=== PATIENT | male | born 1975 | race Caucasian/White ===

== ENCOUNTER 2021-02-09 19:02 | Emergency (ER) | payer MEDICARE, MEDICAID ==
[~2021-02-09] VITALS: Ht 177.8 cm; Wt 104.0 kg
[2021-02-09] MEDS ORDERED: proparacaine 0.5% ophthalmic drops 15ml EACHEYE ONE (19:05)
[2021-02-09] MEDS ORDERED: fluorescein sod 1mg ophthalmic strip EACHEYE ONE (19:05)
[2021-02-09] MEDS ORDERED: ciprofloxacin 0.3% 2.5ml ophthalmic solution LEFTEYE ONE (20:25)
[2021-02-09] MEDS ORDERED: erythromycin ophthalmic ointment 1gm tube LEFTEYE ONE (20:25)
[2021-02-09] MEDS ORDERED: CIPR2.5D21 LEFTEYE (22:09)
[2021-02-09 22:25] VITALS: BP 160/120
== END 2021-02-09 22:29 | disposition home or self-care (01) ==
LOC: ER 19:02
DX: S05.02XA Injury of conjunctiva and corneal abrasion without foreign body, left eye, initial encounter (principal); H57.12 Ocular pain, left eye; H53.142 Visual discomfort, left eye; F17.200 Nicotine dependence, unspecified, uncomplicated; Z72.89 Other problems related to lifestyle; Z79.2 Long term (current) use of antibiotics; Z60.2 Problems related to living alone; X58.XXXA Exposure to other specified factors, initial encounter; Y93.89 Activity, other specified; Y92.89 Other specified places as the place of occurrence of the external cause; Y99.8 Other external cause status
CPT/HCPCS: 69209; 99284

== ENCOUNTER 2021-02-10 07:56 | Emergency (ER) | payer MEDICARE, MEDICAID ==
[~2021-02-10] VITALS: Ht 177.8 cm; Wt 104.5 kg
[~2021-02-10 07:56] MED LIST: CIPR2.5D21 LEFTEYE
[2021-02-10 08:09] VITALS: BP 145/107
[2021-02-10] MEDS ORDERED: proparacaine 0.5% ophthalmic drops 15ml LEFTEYE ONE (08:25)
== END 2021-02-10 10:03 | disposition home or self-care (01) ==
LOC: ER 07:56
DX: S05.02XD Injury of conjunctiva and corneal abrasion without foreign body, left eye, subsequent encounter (principal); H57.12 Ocular pain, left eye; Z60.2 Problems related to living alone; Z72.89 Other problems related to lifestyle; Z79.2 Long term (current) use of antibiotics; X58.XXXD Exposure to other specified factors, subsequent encounter
CPT/HCPCS: 99281

== ENCOUNTER 2023-04-20 00:16 | Inpatient (IN) | payer MEDICARE, MEDICAID ==
[~2023-04-20] VITALS: Ht 177.8 cm; Wt 86.9 kg
[~2023-04-20 00:16] MED LIST changes: +ASPI-1071 PO; -CIPR2.5D21 LEFTEYE; +LOSA-416 PO; +METO-384 PO; +NITR0.4T51 SL; +NOR5T PO; +POTA10CA85 PO
[2023-04-20] MEDS ORDERED: normal saline 1000ML IV soln IVB ONE (07:15)
[2023-04-20] MEDS ORDERED: metoclopramide 5 mg/ml inj IV ONE (07:15)
[2023-04-20] MEDS ORDERED: morphine 4 MG/ML inj SYRINge IV ONE (07:15)
[2023-04-20] MEDS ORDERED: hydrALAZINE 20mg/ml inj. IV ONE (07:20)
--- NOTE | 2023-04-20 07:36 | NUR ---
RN requested tech to do accucheck, tech got an accucheck of 111, RN notified.
[2023-04-20 08:23] LABS: BILIRUBIN,URINE NEGATIVE (Neg); CLARITY,URINE CLEAR (Clear); COLOR,URINE YELLOW (Yellow); GLUCOSE, URINE NEGATIVE (Neg); KETONES,URINE NEGATIVE (Neg); LEUKOCYTE ESTERASE ,URINE NEGATIVE (Neg); NITRITES, URINE NEGATIVE (Neg); OCCULT BLOOD,URINE NEGATIVE (Neg); PROTEIN,URINE NEGATIVE (Neg)
[2023-04-20 08:41] LABS: UA COLLECTION TYPE CLN CATCH MIDSTREAM
[2023-04-20 08:59] LABS: BASOPHILS # (AUTO) 0.1 X10'3 (0-0.2); BASOPHILS % (AUTO) 1.3 % (0-1); EOSINOPHILS # (AUTO) 0.2 X10'3 (0-0.9); EOSINOPHILS % (AUTO) 2.8 % (0-6); HEMOGLOBIN 13.8 g/dl (14.0-17.9); LYMPHOCYTES # (AUTO) 1.6 X10'3 (1.1-4.8); MEAN CORPUSCULAR HEMOGLOBIN 32.5 PG (27.0-31.0); MEAN CORPUSCULAR HGB CONC 34.4 g/dL (33.0-36.5); MEAN CORPUSCULAR VOLUME 94.7 FL (78-98); MEAN PLATELET VOLUME 10.5 FL (7.4-10.4); MONOCYTES # (AUTO) 0.8 X10'3 (0-0.9); MONOCYTES % (AUTO) 11.3 % (2-12); NEUTROPHILS # (AUTO) 4.1 X10'3 (1.8-7.7); NEUTROPHILS % (AUTO) 60.6 % (42-75); PLATELET COUNT 255 X10'3 (140-440); RED BLOOD COUNT 4.23 X10'6 (4.70-6.10); RED CELL DISTRIBUTION WIDTH 13.7 % (11.5-14.5); WHITE BLOOD COUNT 6.7 X10'3 (4.5-11.0)
[2023-04-20 09:08] LABS: APTT 26 SECONDS (22-32); PROTHROMBIN TIME 10.5 SECONDS (9.0-12.0)
[2023-04-20 09:23] LABS: ETHANOL < 10 MG/DL (<10); MAGNESIUM 1.9 MG/DL (1.5-2.4); PHOSPHORUS 4.2 MG/DL (2.3-4.5); PRO BRAIN NATRIURETIC PEPTIDE 166 PG/ML (0-125)
[2023-04-20 09:41] LABS: ALANINE AMINOTRANSFERASE 29 U/L (12-78); ALBUMIN 3.4 G/DL (3.4-5.0); ALBUMIN/GLOBULIN RATIO 1.1 (1.1-1.5); ALKALINE PHOSPHATASE 71 IU/L (46-116); ANION GAP 5 (8-16); ASPARTATE AMINO TRANSFERASE 21 U/L (10-37); BILIRUBIN,TOTAL 0.4 MG/DL (0.1-1.0); BLOOD UREA NITROGEN 9 MG/DL (7-18); BUN/CREATININE RATIO 11.4 (10.0-20.0); CALCIUM 9.2 MG/DL (8.5-10.1); CHLORIDE 101 MMOL/L (99-107); CREATININE 0.79 MG/DL (0.60-1.10); GLUCOSE 103 MG/DL (70-104); SODIUM 143 MMOL/L (135-145); TOTAL CARBON DIOXIDE 37.2 MMOL/L (24-32); TOTAL PROTEIN 6.6 G/DL (6.4-8.2); eCRCL 122 ML/MIN; eGFR > 90 ML/MIN
[2023-04-20 09:48] LABS: POTASSIUM 2.7 MMOL/L (3.5-5.1)
[2023-04-20 10:12] LABS: URINE AMPHETAMINE SCREEN NEGATIVE (Neg); URINE BARBITUATE SCREEN NEGATIVE (Neg); URINE BENZODIAZEPINES SCREEN NEGATIVE (Neg); URINE CANNABINOID SCREEN POSITIVE (Neg); URINE COCAINE SCREEN NEGATIVE (Neg); URINE OPIATE SCREEN NEGATIVE (Neg); URINE PHENCYCLIDINE SCREEN NEGATIVE (Neg)
--- NOTE | 2023-04-20 10:15 | NUR ---
SPOKE WITH MD COBIAN WHO STATED PACER PADS ARE NOT NEEDED AT THIS TIME. ORDER ENTERED IN ERROR.
[2023-04-20] MEDS ORDERED: potassium Cl 20 mEq SR tablet PO STA (10:19)
[2023-04-20] MEDS ORDERED: Potassium Cl inj 40 MEQ in normal saline 250ml IV soln 250 ML IV ONE (10:20)
[2023-04-20] MEDS ORDERED: Potassium Cl 40 MEQ in sodium chloride 0.45% 500 ML IV ONE (10:30)
[2023-04-20] MEDS ORDERED: aspirin 325mg tablet PO ONE (10:35)
--- NOTE | 2023-04-20 10:42 | NUR ---
DR COBIAN ACTIVATED STROKE CALL @ 1712
[2023-04-20] MEDS ORDERED: iohexol 350MG/ML 100ml bottle IV ONE (10:44)
--- NOTE | 2023-04-20 10:44 | NUR ---
SPOKE WITH MD COBIAN REGARDING PT - STATED THERE WAS EVIDENCE OF CHRONIC VS SUBACUTE INFARCT ON PT'S CT. STATED NOT TO CALL STROKE ALERT GIVEN PATIENT'S PRESENTATION, BUT TO ADMINISTER ASPIRIN AND HAVE TELENUERO CONSULT PERFORMED. WILL CONTINUE TO MONITOR. OF NOTE, PATIENT'S NEURO ASSESSMENT THIS MORNING: A&OX4. 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 PUPILS PERRLA. PT WAS STATING THAT "I FELT SO CONFUSED EARLIER. I JUST DIDNT EVEN KNOW WHERE I WAS". PT STATING HE HAS BEEN STAYING AT THE [facility] AND WAS UNABLE TO GET THERE BY HIMSELF EARLY THIS MORNING.
[2023-04-20] MEDS ORDERED: magnesium hydroxide 30ml (MOM) UD suspension PO PRN (11:05)
[2023-04-20] MEDS ORDERED: ondansetron/PF 4mg/2ml inj IV PRN (11:05)
[2023-04-20] MEDS ORDERED: potassium Cl 40MEQ/1/2NS 520ml 520 ML IV PRN (11:05)
[2023-04-20] MEDS ORDERED: magnesium 2GM in 50ml NS 50 ML IV PRN (11:05)
[2023-04-20] MEDS ORDERED: potassium Cl 20 mEq SR tablet PO PRN (11:05)
[2023-04-20] MEDS ORDERED: magnesium 4gm in 100ml NS 100 ML IV PRN (11:05)
[2023-04-20] MEDS ORDERED: mag hydrox/Alum hydrox/simeth 30ml oral suspension PO PRN (11:05)
[2023-04-20] MEDS ORDERED: magnesium Cl slow-release 64mg tablet PO PRN (11:05)
[2023-04-20] MEDS ORDERED: acetaminophen 325mg tablet PO PRN (11:05)
[2023-04-20] MEDS: AMILORIDE 5MG TABLET PO SCH (12:49)
[2023-04-20] MEDS ORDERED: ASPI-1397 PO (13:24)
[2023-04-20] MEDS ORDERED: NITR0.4T48 SL (13:24)
[2023-04-20] MEDS ORDERED: LOSA100T58 PO (13:24)
[2023-04-20] MEDS ORDERED: SERT-433 PO (13:24)
[2023-04-20] MEDS ORDERED: AMLO5TAB16 PO (13:24)
--- NOTE | 2023-04-20 18:46 | NUR ---
REPORT CALLED TO LISBETH DE LEON ON PCU. PT TO BE TRANSFERRED UPSTAIRS ON [facility] WITH BELONGINGS.
[2023-04-20] MEDS: docusate sod 100mg capsule PO SCH (19:13)
[2023-04-20 20:00] VITALS: RESP 16; O2SAT 98
[2023-04-20] MEDS: K and/or MAG REPLACEMENT MC SCH (20:00)
--- NOTE | 2023-04-20 20:26 | NUR ---
Dr. Johnson, [id number] 47M, admitted for Low K and TIA s/s that are no longer present. C/o back back with no PRN available, was getting PRN morphine in ER, can we get a order for PRN [place] for pain? -Dennis RN [id number] Obtained new orders for PRN [place] 5-325mg Q6 for mod-severe pain
[2023-04-20 20:30] VITALS: BP 182/127; PULSE 77; RESP 16; TEMP 98.3; O2SAT 98
[2023-04-20] MEDS: HYDROcodone/acetaminophen 5mg/325mg tablet PO PRN (20:34)
--- NOTE | 2023-04-20 20:45 | NUR ---
Patient verbally stating hes "pissed off" telling staff to "leave me the fuck alone I already answered these questions twenty fucking times and I'm not answering them anymore god damn times". Patient already medicated for pain, states he doesn't need anything and just wants to be left alone, initial vitals are stable, respirations even and unlabored, pt is A&O x4 able to make his own decisions. Tele monitor placed and working appropriately. Call light and fluids within reach. Notified charge nurse of patients behaviors. Unable to perform any further assessment at this time, freq rounding and near nurses station.
[2023-04-20 22:00] VITALS: BP 148/101; PULSE 85; RESP 16; TEMP 97.8; O2SAT 98
[2023-04-21 02:00] VITALS: BP 147/98; PULSE 68; RESP 20; TEMP 98.4; O2SAT 99
[2023-04-21 06:00] VITALS: BP 155/93; PULSE 79; RESP 12; TEMP 98.5; O2SAT 99
--- NOTE | 2023-04-21 07:30 | NUR ---
pt very agitated and refusing any care from me. Unable to complete assessment. notified MD of pt's behavior and non compliance. md to see pt.
[2023-04-21] MEDS: K and/or MAG REPLACEMENT MC SCH ×2 (08:00→19:39)
[2023-04-21] MEDS ORDERED: aspirin 325mg tablet, delayed-release (Ecotrin) PO SCH (08:00)
[2023-04-21 08:09] LABS: BASOPHILS # (AUTO) 0.1 X10'3 (0-0.2); BASOPHILS % (AUTO) 1.3 % (0-1); EOSINOPHILS # (AUTO) 0.1 X10'3 (0-0.9); EOSINOPHILS % (AUTO) 2.4 % (0-6); HEMATOCRIT 43.9 % (42.0-52.0); HEMOGLOBIN 15.2 g/dl (14.0-17.9); LYMPHOCYTES # (AUTO) 1.6 X10'3 (1.1-4.8); LYMPHOCYTES % (AUTO) 28.2 % (21-51); MEAN CORPUSCULAR HEMOGLOBIN 33.3 PG (27.0-31.0); MEAN CORPUSCULAR HGB CONC 34.7 g/dL (33.0-36.5); MEAN PLATELET VOLUME 10.3 FL (7.4-10.4); MONOCYTES # (AUTO) 0.6 X10'3 (0-0.9); MONOCYTES % (AUTO) 10.3 % (2-12); NEUTROPHILS # (AUTO) 3.4 X10'3 (1.8-7.7); NEUTROPHILS % (AUTO) 57.8 % (42-75); PLATELET COUNT 268 X10'3 (140-440); RED BLOOD COUNT 4.58 X10'6 (4.70-6.10); RED CELL DISTRIBUTION WIDTH 13.8 % (11.5-14.5); WHITE BLOOD COUNT 5.8 X10'3 (4.5-11.0)
[2023-04-21] MEDS: docusate sod 100mg capsule PO SCH ×2 (08:24→19:39)
[2023-04-21] MEDS: losartan 50mg tablet PO SCH (08:25)
[2023-04-21] MEDS: aspirin 81mg, enteric-coated 1 TAB TABLET.DR PO SCH (08:25)
[2023-04-21] MEDS: AMILORIDE 5MG TABLET PO SCH (08:25)
[2023-04-21 08:38] LABS: ALBUMIN 3.6 G/DL (3.4-5.0); ANION GAP 5 (8-16); BLOOD UREA NITROGEN 7 MG/DL (7-18); BUN/CREATININE RATIO 9.6 (10.0-20.0); CALCIUM 9.5 MG/DL (8.5-10.1); CHLORIDE 104 MMOL/L (99-107); CHOL/HDL RATIO 4.3 (0.00-4.99); CHOLESTEROL 170 MG/DL (0-200); CREATININE 0.73 MG/DL (0.60-1.10); GLUCOSE 102 MG/DL (70-104); HDL CHOLESTEROL 40 MG/DL (35-60); LDL CHOLESTEROL 111 MG/DL (50-100); MAGNESIUM 2.1 MG/DL (1.5-2.4); PHOSPHORUS 2.5 MG/DL (2.3-4.5); POTASSIUM 3.6 MMOL/L (3.5-5.1); SODIUM 141 MMOL/L (135-145); TOTAL CARBON DIOXIDE 32.3 MMOL/L (24-32); TRIGLYCERIDES 110 MG/DL (20-135); eCRCL 132 ML/MIN; eGFR > 90 ML/MIN
[2023-04-21] MEDS: normal saline 1000ml 1,000 ML IV SCH (09:00)
--- NOTE | 2023-04-21 11:00 | NUR ---
refused letting us take his vital signs.
[2023-04-21 15:00] VITALS: BP 148/86; PULSE 81; RESP 11; TEMP 98.7; O2SAT 100
[2023-04-21 18:00] VITALS: BP 162/98; PULSE 82; RESP 12; TEMP 97.7; O2SAT 100
[2023-04-21] MEDS: HYDROcodone/acetaminophen 5mg/325mg tablet PO PRN (19:55)
[2023-04-21 20:00] VITALS: RESP 14; O2SAT 100
[2023-04-21 22:00] VITALS: BP 172/110; PULSE 80; RESP 17; TEMP 97.2; O2SAT 96
--- NOTE | 2023-04-21 22:00 | NUR ---
Pt refused full physical assessment and re-attempt to do admission assessments at this time, charge nurse aware. Allowing vitals and accepting medications. Denies chest pain or SOB on shift, self ambulatory and voiding with no issues in the restroom. Respirations even and unlabored. Call light and fluids within reach.
[2023-04-22] VITALS (7 sets, daily range): BP systolic 119–150; BP diastolic 75–105; PULSE 70–87; RESP 14–22; TEMP 97.3–98.2; O2SAT 98–100
[2023-04-22] MEDS: aspirin 81mg, enteric-coated 1 TAB TABLET.DR PO SCH (07:29)
[2023-04-22] MEDS: losartan 50mg tablet PO SCH (07:29)
[2023-04-22] MEDS: HYDROcodone/acetaminophen 5mg/325mg tablet PO PRN ×2 (07:29→20:09)
[2023-04-22] MEDS: docusate sod 100mg capsule PO SCH ×2 (07:29→20:08)
[2023-04-22] MEDS: sertraline 50mg tablet PO SCH (07:30)
[2023-04-22] MEDS: amLODIPine 5mg tablet PO SCH (07:30)
[2023-04-22] MEDS: AMILORIDE 5MG TABLET PO SCH (07:30)
[2023-04-22] MEDS: K and/or MAG REPLACEMENT MC SCH ×2 (08:00→20:00)
[2023-04-22 08:08] LABS: ALBUMIN 3.4 G/DL (3.4-5.0); ANION GAP 9 (8-16); BLOOD UREA NITROGEN 8 MG/DL (7-18); BUN/CREATININE RATIO 10.4 (10.0-20.0); CALCIUM 9.1 MG/DL (8.5-10.1); CHLORIDE 104 MMOL/L (99-107); CREATININE 0.77 MG/DL (0.60-1.10); GLUCOSE 102 MG/DL (70-104); MAGNESIUM 1.9 MG/DL (1.5-2.4); PHOSPHORUS 2.9 MG/DL (2.3-4.5); POTASSIUM 3.4 MMOL/L (3.5-5.1); SODIUM 141 MMOL/L (135-145); TOTAL CARBON DIOXIDE 27.7 MMOL/L (24-32); eCRCL 125 ML/MIN; eGFR > 90 ML/MIN
[2023-04-22 08:28] LABS: BASOPHILS # (AUTO) 0.1 X10'3 (0-0.2); BASOPHILS % (AUTO) 1.2 % (0-1); EOSINOPHILS # (AUTO) 0.1 X10'3 (0-0.9); EOSINOPHILS % (AUTO) 1.9 % (0-6); HEMATOCRIT 42.6 % (42.0-52.0); HEMOGLOBIN 14.6 g/dl (14.0-17.9); LYMPHOCYTES # (AUTO) 1.4 X10'3 (1.1-4.8); LYMPHOCYTES % (AUTO) 22.2 % (21-51); MEAN CORPUSCULAR HEMOGLOBIN 32.8 PG (27.0-31.0); MEAN CORPUSCULAR HGB CONC 34.4 g/dL (33.0-36.5); MEAN CORPUSCULAR VOLUME 95.4 FL (78-98); MEAN PLATELET VOLUME 10.6 FL (7.4-10.4); MONOCYTES # (AUTO) 0.6 X10'3 (0-0.9); MONOCYTES % (AUTO) 9.4 % (2-12); NEUTROPHILS # (AUTO) 4.2 X10'3 (1.8-7.7); NEUTROPHILS % (AUTO) 65.3 % (42-75); PLATELET COUNT 264 X10'3 (140-440); RED BLOOD COUNT 4.47 X10'6 (4.70-6.10); RED CELL DISTRIBUTION WIDTH 13.7 % (11.5-14.5); WHITE BLOOD COUNT 6.4 X10'3 (4.5-11.0)
[2023-04-22] MEDS ORDERED: ketorolac trometh. 30mg/ml inj. IM PRN (09:15)
[2023-04-22] MEDS: potassium Cl 20 mEq SR tablet PO PRN ×2 (09:32→14:43)
[2023-04-22] MEDS: ketorolac trometh. 30mg/ml inj. IV PRN (10:03)
[2023-04-22] MEDS ORDERED: LORazepam 1 MG tablet PO ONE (14:45)
[2023-04-22 15:40] LABS: BILIRUBIN,URINE NEGATIVE (Neg); CLARITY,URINE SLIGHTLY CLOUDY (Clear); COLOR,URINE YELLOW (Yellow); GLUCOSE, URINE NEGATIVE (Neg); KETONES,URINE TRACE mg/dl (Neg); LEUKOCYTE ESTERASE ,URINE NEGATIVE (Neg); NITRITES, URINE NEGATIVE (Neg); OCCULT BLOOD,URINE NEGATIVE (Neg); PH,URINE 6.5 (4.8-8.0); PROTEIN,URINE NEGATIVE (Neg); UROBILINOGEN,URINE 0.2 E.U/dL (0.2-1.0)
[2023-04-22 15:45] LABS: UA COLLECTION TYPE NON-SPECIFIED
[2023-04-22 15:54] LABS: MUCUS STRANDS MANY /LPF (Neg); SQUAMOUS EPITHELIAL CELL,UR FEW /LPF (FEW)
[2023-04-22 15:56] LABS: BACTERIA,URINE FEW /HPF (Neg); RBC,URINE 0-2 /HPF (0-2); WBC,URINE 0-4 /HPF (0-4)
[2023-04-22 15:58] LABS: CAL OXALATE CRYSTALS FEW /HPF (NEGATIVE)
--- NOTE | 2023-04-22 23:15 | NUR ---
Pt stated trouble falling asleep and stating he feels very restless, already medicated for pain and repositioned for comfort with no effective relief in attempt to sleep. Contacted MD Fuentes and obtained new order for PRN Restoril 15mg at HS.
[2023-04-22] MEDS: temazepam 15mg capsule PO PRN (23:34)
[2023-04-23] VITALS (8 sets, daily range): BP systolic 114–190; BP diastolic 91–119; PULSE 70–105; RESP 1–22; TEMP 97.6–98.3; O2SAT 97–99
[2023-04-23 07:13] LABS: BASOPHILS # (AUTO) 0.1 X10'3 (0-0.2); BASOPHILS % (AUTO) 1.3 % (0-1); EOSINOPHILS # (AUTO) 0.1 X10'3 (0-0.9); EOSINOPHILS % (AUTO) 2.3 % (0-6); HEMATOCRIT 41.7 % (42.0-52.0); HEMOGLOBIN 14.4 g/dl (14.0-17.9); LYMPHOCYTES # (AUTO) 1.8 X10'3 (1.1-4.8); LYMPHOCYTES % (AUTO) 28.5 % (21-51); MEAN CORPUSCULAR HGB CONC 34.5 g/dL (33.0-36.5); MEAN CORPUSCULAR VOLUME 95.6 FL (78-98); MEAN PLATELET VOLUME 10.5 FL (7.4-10.4); MONOCYTES # (AUTO) 0.6 X10'3 (0-0.9); MONOCYTES % (AUTO) 9.4 % (2-12); NEUTROPHILS # (AUTO) 3.7 X10'3 (1.8-7.7); NEUTROPHILS % (AUTO) 58.5 % (42-75); PLATELET COUNT 269 X10'3 (140-440); RED BLOOD COUNT 4.36 X10'6 (4.70-6.10); RED CELL DISTRIBUTION WIDTH 13.8 % (11.5-14.5); WHITE BLOOD COUNT 6.2 X10'3 (4.5-11.0)
[2023-04-23] MEDS: K and/or MAG REPLACEMENT MC SCH ×2 (08:00→19:16)
[2023-04-23] MEDS: AMILORIDE 5MG TABLET PO SCH ×2 (08:01→12:19)
[2023-04-23] MEDS: aspirin 81mg, enteric-coated 1 TAB TABLET.DR PO SCH (08:01)
[2023-04-23] MEDS: ketorolac trometh. 30mg/ml inj. IV PRN ×3 (08:01→23:40)
[2023-04-23 08:02] LABS: ALBUMIN 3.3 G/DL (3.4-5.0); ANION GAP 8 (8-16); BLOOD UREA NITROGEN 11 MG/DL (7-18); BUN/CREATININE RATIO 14.5 (10.0-20.0); CALCIUM 9.1 MG/DL (8.5-10.1); CHLORIDE 105 MMOL/L (99-107); CREATININE 0.76 MG/DL (0.60-1.10); GLUCOSE 95 MG/DL (70-104); PHOSPHORUS 3.4 MG/DL (2.3-4.5); POTASSIUM 3.5 MMOL/L (3.5-5.1); SODIUM 140 MMOL/L (135-145); eCRCL 127 ML/MIN; eGFR > 90 ML/MIN
[2023-04-23] MEDS: amLODIPine 5mg tablet PO SCH (08:02)
[2023-04-23] MEDS: sertraline 50mg tablet PO SCH (08:02)
[2023-04-23] MEDS: losartan 50mg tablet PO SCH (08:03)
[2023-04-23] MEDS: docusate sod 100mg capsule PO SCH ×2 (08:03→19:34)
[2023-04-23] MEDS: normal saline 1000ml 1,000 ML IV SCH (09:16)
[2023-04-23] MEDS: hydrALAZINE 20mg/ml inj. IV PRN (10:59)
[2023-04-23] MEDS: HYDROcodone/acetaminophen 5mg/325mg tablet PO PRN ×2 (14:57→21:10)
--- NOTE | 2023-04-23 18:15 | NUR ---
Problems reprioritized. Patient report given TO EDIN BOB, questions answered & plan of care reviewed with .
[2023-04-23] MEDS: temazepam 15mg capsule PO PRN (23:28)
[2023-04-24 02:00] VITALS: BP 112/76; PULSE 106; RESP 22; TEMP 98.6; O2SAT 93
[2023-04-24 06:00] VITALS: BP 145/95; PULSE 73; RESP 16; TEMP 97.5; O2SAT 99
[2023-04-24 07:37] LABS: BASOPHILS # (AUTO) 0.1 X10'3 (0-0.2); BASOPHILS % (AUTO) 1.1 % (0-1); EOSINOPHILS # (AUTO) 0.1 X10'3 (0-0.9); EOSINOPHILS % (AUTO) 1.6 % (0-6); HEMATOCRIT 42.8 % (42.0-52.0); HEMOGLOBIN 14.9 g/dl (14.0-17.9); LYMPHOCYTES # (AUTO) 1.5 X10'3 (1.1-4.8); LYMPHOCYTES % (AUTO) 21.1 % (21-51); MEAN CORPUSCULAR HEMOGLOBIN 33.3 PG (27.0-31.0); MEAN CORPUSCULAR HGB CONC 34.7 g/dL (33.0-36.5); MEAN CORPUSCULAR VOLUME 95.9 FL (78-98); MEAN PLATELET VOLUME 10.2 FL (7.4-10.4); MONOCYTES # (AUTO) 0.7 X10'3 (0-0.9); MONOCYTES % (AUTO) 10.7 % (2-12); NEUTROPHILS # (AUTO) 4.5 X10'3 (1.8-7.7); NEUTROPHILS % (AUTO) 65.5 % (42-75); PLATELET COUNT 267 X10'3 (140-440); RED BLOOD COUNT 4.47 X10'6 (4.70-6.10); RED CELL DISTRIBUTION WIDTH 13.5 % (11.5-14.5); WHITE BLOOD COUNT 6.9 X10'3 (4.5-11.0)
[2023-04-24] MEDS ORDERED: amLODIPine 5mg tablet PO SCH (08:00)
[2023-04-24] MEDS: K and/or MAG REPLACEMENT MC SCH (08:00)
[2023-04-24] MEDS: docusate sod 100mg capsule PO SCH (08:01)
[2023-04-24] MEDS: losartan 50mg tablet PO SCH (08:02)
[2023-04-24] MEDS: aspirin 81mg, enteric-coated 1 TAB TABLET.DR PO SCH (08:02)
[2023-04-24] MEDS: sertraline 50mg tablet PO SCH (08:02)
[2023-04-24] MEDS: HYDROcodone/acetaminophen 5mg/325mg tablet PO PRN (08:03)
[2023-04-24 08:22] LABS: ALBUMIN 3.4 G/DL (3.4-5.0); ANION GAP 10 (8-16); BLOOD UREA NITROGEN 10 MG/DL (7-18); CALCIUM 9.2 MG/DL (8.5-10.1); CHLORIDE 104 MMOL/L (99-107); CREATININE 0.77 MG/DL (0.60-1.10); GLUCOSE 93 MG/DL (70-104); PHOSPHORUS 3.2 MG/DL (2.3-4.5); POTASSIUM 3.7 MMOL/L (3.5-5.1); SODIUM 140 MMOL/L (135-145); eCRCL 125 ML/MIN; eGFR > 90 ML/MIN
[2023-04-24 08:24] VITALS: RESP 15; O2SAT 98
--- NOTE | 2023-04-24 08:40 | NUR ---
Resident made aware that pt. states he was hearing voices. This is the first time he has ever had auditory hallucinations. 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 "singing to himself and acting weird". Pt. states this is the first time he has ever acted this way and he would like mental health help. He also states he has very poor teeth hygiene and that he needs a dentist. Reports pain in R jaw and on assessment several black broken teeth and a swollen gum area. Resident aware.
--- NOTE | 2023-04-24 09:01 | NUR ---
Resident rounded on pt
--- NOTE | 2023-04-24 10:02 | NUR ---
Called pharmacy for Amiloride. Josefina with pharmacist Michael.
[2023-04-24 11:00] VITALS: BP 157/110; PULSE 87; RESP 20; TEMP 98.2; O2SAT 98
[2023-04-24] MEDS: AMILORIDE 5MG TABLET PO SCH ×2 (12:16→12:17)
[2023-04-24 13:29] VITALS: BP_SYST 164; BP_SYST 172; BP_DIAS 101; BP_DIAS 95; PULSE 89
[2023-04-24] MEDS: hydrALAZINE 20mg/ml inj. IV PRN (13:33)
--- NOTE | 2023-04-24 13:35 | NUR ---
DISCHARGE noted, pt. currently hypertensive. hydralazine administered per order.
--- NOTE | 2023-04-24 13:58 | NUR ---
RESIDENT AWARE OF CURRENT HTN
[2023-04-24] MEDS ORDERED: AMIL5TAB8 PO (14:19)
[2023-04-24] MEDS ORDERED: BLOO1KIT81 TOP (14:19)
[2023-04-24] MEDS ORDERED: POTA10CA85 PO ×3 (14:19→16:59)
[2023-04-24] MEDS ORDERED: AMLO5TAB16 PO ×2 (14:21→17:12)
[2023-04-24 15:25] VITALS: BP 154/92; PULSE 99
--- NOTE | 2023-04-24 15:52 | NUR ---
enterprise applications manager asking to have discharge meds and bp cuff verified by pharmacy and to make sure insurance will cover BP cuff and meds.
--- NOTE | 2023-04-24 17:10 | NUR ---
Resident aware pt. may not be able to afford BP cuff and that insurance will not cover it. CM aware as well.
--- NOTE | 2023-04-24 17:31 | NUR ---
DISCHARGE NOTE: Many discharge medications written incorrectly and needed clarification between RN, resident, and [facility] pharmacist. Pharmacy also took a lunch break at one point. These are reasons discharge delayed. Pt. also stated he did not have ride or money. Cab ride covered, but blood pressure not. Resident ok with discharge. Pt very upset say could not stay another night. Yelling "you did this intentionally!" Previously stated that he had called resources provided by [facility] and that they had stated he would have a place to stay in the morning at 9am, however he was notified earlier in the shift that he would be discharging today. SRN removed PIV, cannula intact, pressure bandage applied. Pt. began yelling, using threatening and accusatory language, security called. Pt. then refused to review discharge paperwork or plan or medications stating we "first want him to leave and now we want him to stay and we called the gupacho" and that he "didn't know the hospital was a long-term". Pt. refused to sign his discharge paperwork. Charge aware of situation. Cab arrived downstairs and pt. escorted downstairs with belongings by security.
[2023-04-25 22:35] LABS: ACTH, PLASMA 25.9 pg/mL (7.2-63.3)
[2023-05-01 19:34] LABS: ALDOSTERONE 16 ng/dL (.)
[2023-05-02 15:09] LABS: RENIN, PLASMA <0.167 ng/mL/hr (.)
== END 2023-04-24 17:30 | disposition home or self-care (01) | DRG 304 ==
LOC: ER 00:17 → ED HOLD 11:09 → PCU 3S 19:00
PROVIDERS: ADMIT Family Medicine; ATTEND Family Medicine
PROC: B3251ZZ Computerized Tomography (CT Scan) of Bilateral Common Carotid Arteries using Low Osmolar Contrast (ICD-10-PCS; principal; 2023-04-20)
PROC: B32G1ZZ Computerized Tomography (CT Scan) of Bilateral Vertebral Arteries using Low Osmolar Contrast (ICD-10-PCS; 2023-04-20)
PROC: B32R1ZZ Computerized Tomography (CT Scan) of Intracranial Arteries using Low Osmolar Contrast (ICD-10-PCS; 2023-04-20)
PROC: B3281ZZ Computerized Tomography (CT Scan) of Bilateral Internal Carotid Arteries using Low Osmolar Contrast (ICD-10-PCS; 2023-04-20)
DX: I15.1 Hypertension secondary to other renal disorders (principal); I63.9 Cerebral infarction, unspecified; E87.3 Alkalosis; Z59.00 Homelessness unspecified; I42.9 Cardiomyopathy, unspecified; I11.0 Hypertensive heart disease with heart failure; F43.10 Post-traumatic stress disorder, unspecified; F17.210 Nicotine dependence, cigarettes, uncomplicated; F12.10 Cannabis abuse, uncomplicated; D35.00 Benign neoplasm of unspecified adrenal gland; I50.9 Heart failure, unspecified; E87.6 Hypokalemia; Z86.73 Personal history of transient ischemic attack (TIA), and cerebral infarction without residual deficits; Z82.49 Family history of ischemic heart disease and other diseases of the circulatory system; Z79.899 Other long term (current) drug therapy; Z79.82 Long term (current) use of aspirin; Z87.442 Personal history of urinary calculi
CPT/HCPCS: 36415; 70450; 70496; 70498; 71045; 80048; 80053; 80061; 80305; 80320; 81001; 81003; 82024; 82088; 82948; 83036; 83605; 83735; 83880; 84100; 84132; 84145; 84244; 84484; 85025; 85610; 85651; 85730; 87040; 93005; 93308; 96374; 96375; 99285; G0378; J0360; J1885; J2270; J2765; J3480; J3490; J7030; Q9967

== ENCOUNTER 2023-04-29 20:51 | Emergency (ER) | payer MEDICARE, MEDICAID ==
[~2023-04-29] VITALS: Ht 177.8 cm; Wt 84.5 kg
[~2023-04-29 20:51] MED LIST changes: +AMIL5TAB8 PO; +AMLO5TAB16 PO; -ASPI-1071 PO; +ASPI-1397 PO; +BLOO1KIT81 TOP; +LOSA100T58 PO; +NITR0.4T48 SL; -NITR0.4T51 SL; -NOR5T PO; +SERT-433 PO
[2023-04-29 20:59] VITALS: TEMP 97.1
[2023-04-29 22:26] VITALS: BP 164/107; PULSE 88; RESP 20; O2SAT 98
--- NOTE | 2023-04-29 23:27 | NUR ---
Documentation completed by COKE STILL CLEANER reviewed and concur with documentation.
== END 2023-04-29 22:28 | disposition home or self-care (01) ==
LOC: ER 20:52
DX: I10 Essential (primary) hypertension (principal); F41.9 Anxiety disorder, unspecified; Z72.89 Other problems related to lifestyle; Z79.899 Other long term (current) drug therapy
CPT/HCPCS: 99283

== ENCOUNTER 2023-06-18 00:14 | Inpatient (IN) | payer MEDICARE, MEDICAID ==
[~2023-06-18] VITALS: Ht 177.8 cm; Wt 84.4 kg
[2023-06-18 01:28] LABS: URINE AMPHETAMINE SCREEN NEGATIVE (Neg); URINE BARBITUATE SCREEN NEGATIVE (Neg); URINE BENZODIAZEPINES SCREEN NEGATIVE (Neg); URINE CANNABINOID SCREEN POSITIVE (Neg); URINE COCAINE SCREEN NEGATIVE (Neg); URINE METHADONE SCREEN NEGATIVE (Neg); URINE OPIATE SCREEN NEGATIVE (Neg); URINE PHENCYCLIDINE SCREEN NEGATIVE (Neg)
[2023-06-18 02:15] LABS: MEAN PLATELET VOLUME 9.4 FL (7.4-10.4)
[2023-06-18 02:17] LABS: BASOPHILS # (AUTO) 0.1 X10'3 (0-0.2); BASOPHILS % (AUTO) 1.2 % (0-1); EOSINOPHILS # (AUTO) 0.2 X10'3 (0-0.9); EOSINOPHILS % (AUTO) 3.1 % (0-6); HEMATOCRIT 37.2 % (42.0-52.0); HEMOGLOBIN 12.8 g/dl (14.0-17.9); LYMPHOCYTES % (AUTO) 26.6 % (21-51); MEAN CORPUSCULAR HEMOGLOBIN 32.8 PG (27.0-31.0); MEAN CORPUSCULAR HGB CONC 34.4 g/dL (33.0-36.5); MEAN CORPUSCULAR VOLUME 95.5 FL (78-98); MONOCYTES # (AUTO) 0.8 X10'3 (0-0.9); MONOCYTES % (AUTO) 10.8 % (2-12); NEUTROPHILS # (AUTO) 4.4 X10'3 (1.8-7.7); NEUTROPHILS % (AUTO) 58.3 % (42-75); PLATELET COUNT 282 X10'3 (140-440); RED CELL DISTRIBUTION WIDTH 13.3 % (11.5-14.5); WHITE BLOOD COUNT 7.6 X10'3 (4.5-11.0)
[2023-06-18 02:24] LABS: ALANINE AMINOTRANSFERASE 36 U/L (12-78); ALBUMIN 3.2 G/DL (3.4-5.0); ALBUMIN/GLOBULIN RATIO 0.9 (1.1-1.5); ALKALINE PHOSPHATASE 75 IU/L (46-116); ANION GAP 9 (8-16); ASPARTATE AMINO TRANSFERASE 29 U/L (10-37); BILIRUBIN,TOTAL 0.4 MG/DL (0.1-1.0); BLOOD UREA NITROGEN 20 MG/DL (7-18); BUN/CREATININE RATIO 23.8 (10.0-20.0); CALCIUM 8.7 MG/DL (8.5-10.1); CHLORIDE 106 MMOL/L (99-107); CREATININE 0.84 MG/DL (0.60-1.10); GLUCOSE 118 MG/DL (70-104); POTASSIUM 3.2 MMOL/L (3.5-5.1); SODIUM 142 MMOL/L (135-145); TOTAL PROTEIN 6.6 G/DL (6.4-8.2); eCRCL 115 ML/MIN; eGFR > 90 ML/MIN
[2023-06-18 02:33] LABS: ETHANOL < 10 MG/DL (<10); THYROID STIMULATING HORMONE 2.04 ulU/ml (0.34-4.50)
[2023-06-18] MEDS ORDERED: potassium Cl 20 mEq SR tablet PO STA (02:48)
[2023-06-18] MEDS ORDERED: acetaminophen 325mg tablet PO ONE (14:40)
[2023-06-18] MEDS ORDERED: HYDR-3686 PO (17:07)
[2023-06-18] MEDS ORDERED: LOSA-418 PO (17:07)
[2023-06-18] MEDS ORDERED: POTA-366 PO (17:07)
[2023-06-18] MEDS ORDERED: SERT-434 PO (17:07)
[2023-06-18] MEDS ORDERED: AMLO10TA PO (17:07)
[2023-06-18] MEDS ORDERED: ACET325T57 PO (17:07)
[2023-06-18] MEDS ORDERED: METO50TA17 PO (17:07)
[2023-06-18] MEDS ORDERED: AMIL5TAB8 PO (17:07)
[2023-06-18] MEDS ORDERED: amLODIPine 5mg tablet PO SCH (17:59)
[2023-06-18] MEDS: AMILORIDE 5MG TABLET PO SCH (18:39)
[2023-06-18] MEDS: losartan 50mg tablet PO SCH (18:40)
[2023-06-18] MEDS: sertraline 50mg tablet PO SCH (18:40)
[2023-06-18] MEDS: metoprolol tartrate 50mg tablet PO SCH (18:40)
[2023-06-18] MEDS: OLANZapine 2.5MG tablet PO SCH (19:43)
[2023-06-18] MEDS: potassium chloride 10mEq ER tablet PO SCH (20:44)
[2023-06-18] MEDS: hydrOXYzine 25 MG tablet PO PRN (20:44)
[2023-06-19] MEDS: OLANZapine 2.5MG tablet PO SCH ×2 (08:01→20:42)
[2023-06-19] MEDS: metoprolol tartrate 50mg tablet PO SCH (08:02)
[2023-06-19] MEDS: AMILORIDE 5MG TABLET PO SCH ×2 (08:02→17:21)
[2023-06-19] MEDS: sertraline 50mg tablet PO SCH (08:03)
[2023-06-19] MEDS: potassium chloride 10mEq ER tablet PO SCH ×5 (08:03→20:42)
[2023-06-19] MEDS: amLODIPine 5mg tablet PO SCH (08:03)
[2023-06-19] MEDS: losartan 50mg tablet PO SCH (08:04)
[2023-06-19 18:38] LABS: ALANINE AMINOTRANSFERASE 33 U/L (12-78); ALBUMIN/GLOBULIN RATIO 0.9 (1.1-1.5); ALKALINE PHOSPHATASE 73 IU/L (46-116); ANION GAP 8 (8-16); ASPARTATE AMINO TRANSFERASE 17 U/L (10-37); BILIRUBIN,TOTAL 0.2 MG/DL (0.1-1.0); BLOOD UREA NITROGEN 11 MG/DL (7-18); BUN/CREATININE RATIO 15.3 (10.0-20.0); CHLORIDE 107 MMOL/L (99-107); CREATININE 0.72 MG/DL (0.60-1.10); GLUCOSE 101 MG/DL (70-104); POTASSIUM 3.9 MMOL/L (3.5-5.1); SODIUM 141 MMOL/L (135-145); TOTAL CARBON DIOXIDE 26.3 MMOL/L (24-32); TOTAL PROTEIN 6.5 G/DL (6.4-8.2); eCRCL 134 ML/MIN; eGFR > 90 ML/MIN
[2023-06-20] MEDS: acetaminophen 325mg tablet PO PRN (03:40)
[2023-06-20] MEDS: sertraline 50mg tablet PO SCH (08:24)
[2023-06-20] MEDS: OLANZapine 2.5MG tablet PO SCH ×2 (08:24→20:09)
[2023-06-20] MEDS: amLODIPine 5mg tablet PO SCH (08:25)
[2023-06-20] MEDS: metoprolol tartrate 50mg tablet PO SCH (08:26)
[2023-06-20] MEDS: losartan 50mg tablet PO SCH (08:26)
[2023-06-20] MEDS: AMILORIDE 5MG TABLET PO SCH ×2 (08:45→17:04)
[2023-06-20] MEDS ORDERED: POTA10CA85 PO (11:28)
[2023-06-20] MEDS: clindamycin 150mg capsule PO SCH (17:04)
[2023-06-20] MEDS: hydrOXYzine 25 MG tablet PO PRN (20:09)
[2023-06-20] MEDS: chlorhexidine gluconate 15ml Cup****oral rinse MM SCH (20:47)
[2023-06-20] MEDS ORDERED: LORazepam 1 MG tablet PO ONE (21:55)
[2023-06-21] MEDS: clindamycin 150mg capsule PO SCH ×3 (00:25→16:00)
[2023-06-21] MEDS: AMILORIDE 5MG TABLET PO SCH ×2 (08:34→17:30)
[2023-06-21] MEDS: amLODIPine 5mg tablet PO SCH (08:35)
[2023-06-21] MEDS: sertraline 50mg tablet PO SCH (08:35)
[2023-06-21] MEDS: losartan 50mg tablet PO SCH (08:35)
[2023-06-21] MEDS: metoprolol tartrate 50mg tablet PO SCH (08:36)
[2023-06-21] MEDS: OLANZapine 2.5MG tablet PO SCH ×2 (08:37→20:00)
[2023-06-21] MEDS: chlorhexidine gluconate 15ml Cup****oral rinse MM SCH ×3 (08:46→21:28)
[2023-06-21] MEDS: acetaminophen 325mg tablet PO PRN ×2 (11:58→13:34)
[2023-06-22] MEDS: clindamycin 150mg capsule PO SCH ×4 (00:15→23:18)
[2023-06-22] MEDS: losartan 50mg tablet PO SCH (08:05)
[2023-06-22] MEDS: metoprolol tartrate 50mg tablet PO SCH (08:05)
[2023-06-22] MEDS: OLANZapine 2.5MG tablet PO SCH ×2 (08:06→20:37)
[2023-06-22] MEDS: amLODIPine 5mg tablet PO SCH (08:06)
[2023-06-22] MEDS: AMILORIDE 5MG TABLET PO SCH ×2 (08:06→18:07)
[2023-06-22] MEDS: sertraline 50mg tablet PO SCH (08:06)
[2023-06-22] MEDS: chlorhexidine gluconate 15ml Cup****oral rinse MM SCH ×3 (08:09→20:37)
[2023-06-22] MEDS: acetaminophen 325mg tablet PO PRN ×2 (10:37→21:03)
[2023-06-22 10:40] VITALS: BP 120/70; PULSE 67; RESP 16; TEMP 98.1; O2SAT 98
[2023-06-22 13:05] VITALS: RESP 16; O2SAT 98
[2023-06-22] MEDS ORDERED: loperamide 2mg capsule PO PRN (13:15)
[2023-06-22] MEDS ORDERED: mag hydrox/Alum hydrox/simeth 30ml oral suspension PO PRN (13:15)
[2023-06-22] MEDS ORDERED: acetaminophen 325mg tablet PO PRN (13:15)
[2023-06-22] MEDS: magnesium hydroxide 30ml (MOM) UD suspension PO PRN (13:30)
[2023-06-22] MEDS ORDERED: potassium Cl 40MEQ/1/2NS 520ml 520 ML IV PRN (14:15)
[2023-06-22] MEDS ORDERED: potassium Cl 20 mEq SR tablet PO PRN ×2 (14:15)
[2023-06-22] MEDS: K and/or MAG REPLACEMENT MC SCH (19:22)
[2023-06-22 19:30] VITALS: BP 135/82; PULSE 70; RESP 20; TEMP 97.5; O2SAT 98
[2023-06-22] MEDS: hydrOXYzine 25 MG tablet PO PRN (21:42)
[2023-06-23 07:00] VITALS: RESP 16; O2SAT 98
[2023-06-23 08:00] VITALS: BP 144/85; PULSE 70; RESP 16; TEMP 97.3; O2SAT 98
[2023-06-23 08:30] LABS: POTASSIUM 4.1 MMOL/L (3.5-5.1); THYROID STIMULATING HORMONE 1.35 ulU/ml (0.34-4.50)
[2023-06-23] MEDS: K and/or MAG REPLACEMENT MC SCH ×2 (08:55→19:13)
[2023-06-23] MEDS: OLANZapine 2.5MG tablet PO SCH (08:58)
[2023-06-23] MEDS: losartan 50mg tablet PO SCH (08:59)
[2023-06-23] MEDS: amLODIPine 5mg tablet PO SCH (09:00)
[2023-06-23] MEDS: clindamycin 150mg capsule PO SCH ×2 (09:00→16:58)
[2023-06-23] MEDS: sertraline 50mg tablet PO SCH (09:01)
[2023-06-23] MEDS: metoprolol tartrate 50mg tablet PO SCH (09:01)
[2023-06-23] MEDS: chlorhexidine gluconate 15ml Cup****oral rinse MM SCH ×3 (09:02→20:55)
[2023-06-23] MEDS: AMILORIDE 5MG TABLET PO SCH ×2 (09:04→18:03)
[2023-06-23] MEDS: acetaminophen 325mg tablet PO PRN (09:07)
[2023-06-23] MEDS: hydrOXYzine 25 MG tablet PO PRN (17:44)
[2023-06-23 20:00] VITALS: BP 142/93; PULSE 73; RESP 16; TEMP 97.2; O2SAT 97
[2023-06-23] MEDS: magnesium hydroxide 30ml (MOM) UD suspension PO PRN (20:56)
[2023-06-23] MEDS ORDERED: OLANZAPINE 5 MG TABLET PO SCH (21:00)
[2023-06-24 07:00] VITALS: RESP 16; O2SAT 98
[2023-06-24 07:05] VITALS: BP 131/78; PULSE 71; RESP 16; TEMP 97.2
[2023-06-24] MEDS: chlorhexidine gluconate 15ml Cup****oral rinse MM SCH ×2 (07:15→12:31)
[2023-06-24] MEDS: losartan 50mg tablet PO SCH (07:16)
[2023-06-24] MEDS: AMILORIDE 5MG TABLET PO SCH (07:16)
[2023-06-24 07:17] VITALS: BP_SYST 131; PULSE 71
[2023-06-24] MEDS: clindamycin 150mg capsule PO SCH ×2 (07:17)
[2023-06-24] MEDS: amLODIPine 5mg tablet PO SCH (07:17)
[2023-06-24] MEDS: metoprolol tartrate 50mg tablet PO SCH (07:17)
[2023-06-24] MEDS ORDERED: sertraline 50mg tablet PO SCH (08:00)
[2023-06-24] MEDS ORDERED: olanzapine 10mg tablet PO SCH (08:00)
[2023-06-24] MEDS: K and/or MAG REPLACEMENT MC SCH (08:00)
[2023-06-24] MEDS ORDERED: OLAN15TA35 PO ×2 (12:34)
[2023-06-24] MEDS ORDERED: AMIL5TAB8 PO ×2 (12:34)
[2023-06-24] MEDS ORDERED: CHLO473M2 MM ×2 (12:34)
[2023-06-24] MEDS ORDERED: SERT150C PO ×2 (12:34)
[2023-06-24] MEDS ORDERED: LOSA-418 PO ×2 (12:34)
[2023-06-24] MEDS ORDERED: HYDR-3686 PO ×2 (12:34)
[2023-06-24] MEDS ORDERED: CLE150C PO ×2 (12:34)
[2023-06-24] MEDS ORDERED: AMLO10TA PO ×2 (12:34)
[2023-06-24] MEDS ORDERED: METO50TA17 PO ×2 (12:34)
[2023-06-24 14:13] LABS: HBSAG SCREEN Negative (Negative); HEP B CORE AB, IGM Negative (Negative); HEP B CORE AB, TOT Negative (Negative)
== END 2023-06-24 14:13 | disposition home or self-care (01) | DRG 885 ==
LOC: ER 00:14 → ED HOLD 06-22 09:25 → ADULT MH 06-22 10:53
PROVIDERS: ADMIT Psychiatry & Neurology Psychiatry; ATTEND Psychiatry & Neurology Psychiatry
PROC: GZHZZZZ Group Psychotherapy (ICD-10-PCS; principal; 2023-06-22)
PROC: GZ51ZZZ Individual Psychotherapy, Behavioral (ICD-10-PCS; 2023-06-22)
DX: F33.3 Major depressive disorder, recurrent, severe with psychotic symptoms (principal); I42.9 Cardiomyopathy, unspecified; K12.2 Cellulitis and abscess of mouth; Z59.01 Sheltered homelessness; K21.9 Gastro-esophageal reflux disease without esophagitis; F60.2 Antisocial personality disorder; G47.00 Insomnia, unspecified; Z20.822 Contact with and (suspected) exposure to COVID-19; F43.10 Post-traumatic stress disorder, unspecified; E87.6 Hypokalemia; F41.1 Generalized anxiety disorder; I10 Essential (primary) hypertension; I48.91 Unspecified atrial fibrillation; Z79.82 Long term (current) use of aspirin; Z79.899 Other long term (current) drug therapy; Z82.49 Family history of ischemic heart disease and other diseases of the circulatory system; Z86.73 Personal history of transient ischemic attack (TIA), and cerebral infarction without residual deficits; Z88.6 Allergy status to analgesic agent; Z87.442 Personal history of urinary calculi
CPT/HCPCS: 36415; 80053; 80305; 80320; 83036; 84132; 84443; 85025; 86704; 86705; 87081; 87340; 87811; 99285; Q0177

== ENCOUNTER 2023-07-01 01:36 | Emergency (ER) | payer MEDICARE, MEDICAID ==
[~2023-07-01] VITALS: Ht 177.8 cm; Wt 85.0 kg
[~2023-07-01 01:36] MED LIST changes: +AMLO10TA PO; -AMLO5TAB16 PO; -ASPI-1397 PO; -BLOO1KIT81 TOP; +CHLO473M2 MM; +CLE150C PO; +HYDR-3686 PO; -LOSA-416 PO; +LOSA-418 PO; -LOSA100T58 PO; -METO-384 PO; +METO50TA17 PO; -NITR0.4T48 SL; +OLAN15TA35 PO; -POTA10CA85 PO; -SERT-433 PO; +SERT150C PO
[2023-07-01 05:18] LABS: ACETAMINOPHEN < 2.0 UG/ML (10-30); ALANINE AMINOTRANSFERASE 38 U/L (12-78); ALBUMIN 3.4 G/DL (3.4-5.0); ALBUMIN/GLOBULIN RATIO 0.9 (1.1-1.5); ALKALINE PHOSPHATASE 78 IU/L (46-116); ANION GAP 12 (8-16); ASPARTATE AMINO TRANSFERASE 37 U/L (10-37); BASOPHILS # (AUTO) 0.1 X10'3 (0-0.2); BASOPHILS % (AUTO) 0.8 % (0-1); BILIRUBIN,TOTAL 0.3 MG/DL (0.1-1.0); BLOOD UREA NITROGEN 11 MG/DL (7-18); BUN/CREATININE RATIO 12.5 (10.0-20.0); CHLORIDE 102 MMOL/L (99-107); CREATININE 0.88 MG/DL (0.60-1.10); EOSINOPHILS # (AUTO) 0.2 X10'3 (0-0.9); ETHANOL 31 MG/DL (<10); GLUCOSE 86 MG/DL (70-104); HEMOGLOBIN 13.2 g/dl (14.0-17.9); LYMPHOCYTES # (AUTO) 2.3 X10'3 (1.1-4.8); LYMPHOCYTES % (AUTO) 28.8 % (21-51); MEAN CORPUSCULAR HEMOGLOBIN 32.7 PG (27.0-31.0); MEAN CORPUSCULAR HGB CONC 34.7 g/dL (33.0-36.5); MEAN CORPUSCULAR VOLUME 94.2 FL (78-98); MEAN PLATELET VOLUME 8.9 FL (7.4-10.4); MONOCYTES # (AUTO) 0.7 X10'3 (0-0.9); MONOCYTES % (AUTO) 9.4 % (2-12); NEUTROPHILS # (AUTO) 4.7 X10'3 (1.8-7.7); PLATELET COUNT 344 X10'3 (140-440); RED BLOOD COUNT 4.03 X10'6 (4.70-6.10); RED CELL DISTRIBUTION WIDTH 13.4 % (11.5-14.5); SODIUM 143 MMOL/L (135-145); TOTAL CARBON DIOXIDE 28.9 MMOL/L (24-32); TOTAL PROTEIN 7.2 G/DL (6.4-8.2); WHITE BLOOD COUNT 7.9 X10'3 (4.5-11.0); eCRCL 109 ML/MIN; eGFR > 90 ML/MIN
[2023-07-01 05:21] LABS: POTASSIUM 2.6 MMOL/L (3.5-5.1)
[2023-07-01] MEDS ORDERED: POTASSIUM BICARB 20meq eff tab 20 MEQ TABLET.EFF PO ONE ×2 (05:25→16:05)
[2023-07-01 09:17] LABS: BILIRUBIN,URINE NEGATIVE (Neg); CLARITY,URINE CLEAR (Clear); COLOR,URINE YELLOW (Yellow); GLUCOSE, URINE NEGATIVE (Neg); KETONES,URINE NEGATIVE (Neg); LEUKOCYTE ESTERASE ,URINE NEGATIVE (Neg); NITRITES, URINE NEGATIVE (Neg); OCCULT BLOOD,URINE TRACE-INTACT (Neg); PROTEIN,URINE NEGATIVE (Neg); UROBILINOGEN,URINE 0.2 E.U/dL (0.2-1.0)
[2023-07-01 09:21] LABS: UA COLLECTION TYPE CLN CATCH MIDSTREAM
[2023-07-01 09:22] LABS: BACTERIA,URINE NONE SEEN /HPF (Neg); MUCUS STRANDS FEW /LPF (Neg); RBC,URINE 0-2 /HPF (0-2); SQUAMOUS EPITHELIAL CELL,UR FEW /LPF (FEW); WBC,URINE 0-4 /HPF (0-4)
[2023-07-01 09:27] LABS: URINE AMPHETAMINE SCREEN NEGATIVE (Neg); URINE BARBITUATE SCREEN NEGATIVE (Neg); URINE BENZODIAZEPINES SCREEN NEGATIVE (Neg); URINE CANNABINOID SCREEN POSITIVE (Neg); URINE COCAINE SCREEN NEGATIVE (Neg); URINE METHADONE SCREEN NEGATIVE (Neg); URINE OPIATE SCREEN NEGATIVE (Neg); URINE PHENCYCLIDINE SCREEN NEGATIVE (Neg)
[2023-07-01] MEDS ORDERED: potassium Cl 20 mEq SR tablet PO STA (10:57)
[2023-07-01] MEDS ORDERED: HYDROcodone/acetaminophen 5mg/325mg tablet PO ONE (19:25)
[2023-07-01 19:32] LABS: MAGNESIUM 2.1 MG/DL (1.5-2.4); POTASSIUM 3.6 MMOL/L (3.5-5.1)
[2023-07-01] MEDS ORDERED: NICOTINE POLACRILEX 2 MG LOZENGE BC PRN (21:35)
[2023-07-01] MEDS: traZODone 50mg tablet PO PRN (22:05)
[2023-07-02] MEDS: traZODone 50mg tablet PO PRN (00:26)
[2023-07-02 06:17] VITALS: BP 141/88; PULSE 88; TEMP 98.8; O2SAT 98
[2023-07-02 08:10] VITALS: RESP 16
[2023-07-17] MEDS ORDERED: AMLO10TA13 PO (20:23)
[2023-07-17] MEDS ORDERED: LOSA100T58 PO (20:23)
[2023-07-17] MEDS ORDERED: AMIL5TAB8 PO (20:23)
[2023-07-17] MEDS ORDERED: HYDR-3686 PO (20:23)
[2023-07-17] MEDS ORDERED: SERT-434 PO (20:23)
== END 2023-07-20 19:08 | disposition home or self-care (01) ==
LOC: ER 01:37
DX: Z73.6 Limitation of activities due to disability (principal); Z20.822 Contact with and (suspected) exposure to COVID-19; E87.6 Hypokalemia; F10.129 Alcohol abuse with intoxication, unspecified; I10 Essential (primary) hypertension; Z88.6 Allergy status to analgesic agent; Z88.8 Allergy status to other drugs, medicaments and biological substances; Y90.9 Presence of alcohol in blood, level not specified
CPT/HCPCS: 36415; 80053; 80305; 80320; 80329; 81001; 83735; 84132; 85025; 87811; 99284

== ENCOUNTER 2023-07-17 10:03 | Emergency (ER) | payer MEDICARE, MEDICAID ==
[~2023-07-17] VITALS: Ht 177.8 cm; Wt 84.3 kg
[2023-07-17 12:56] LABS: URINE AMPHETAMINE SCREEN NEGATIVE (Neg); URINE BARBITUATE SCREEN NEGATIVE (Neg); URINE BENZODIAZEPINES SCREEN NEGATIVE (Neg); URINE CANNABINOID SCREEN POSITIVE (Neg); URINE COCAINE SCREEN NEGATIVE (Neg); URINE METHADONE SCREEN NEGATIVE (Neg); URINE OPIATE SCREEN NEGATIVE (Neg); URINE PHENCYCLIDINE SCREEN NEGATIVE (Neg)
[2023-07-17 13:01] LABS: BASOPHILS # (AUTO) 0.1 X10'3 (0-0.2); BASOPHILS % (AUTO) 1.1 % (0-1); EOSINOPHILS % (AUTO) 0.6 % (0-6); HEMATOCRIT 38.5 % (42.0-52.0); HEMOGLOBIN 13.3 g/dl (14.0-17.9); LYMPHOCYTES # (AUTO) 1.6 X10'3 (1.1-4.8); LYMPHOCYTES % (AUTO) 21.6 % (21-51); MEAN CORPUSCULAR HEMOGLOBIN 32.6 PG (27.0-31.0); MEAN CORPUSCULAR HGB CONC 34.5 g/dL (33.0-36.5); MEAN CORPUSCULAR VOLUME 94.4 FL (78-98); MEAN PLATELET VOLUME 9.1 FL (7.4-10.4); MONOCYTES # (AUTO) 0.7 X10'3 (0-0.9); MONOCYTES % (AUTO) 9.4 % (2-12); NEUTROPHILS # (AUTO) 5.1 X10'3 (1.8-7.7); NEUTROPHILS % (AUTO) 67.3 % (42-75); PLATELET COUNT 341 X10'3 (140-440); RED BLOOD COUNT 4.08 X10'6 (4.70-6.10); RED CELL DISTRIBUTION WIDTH 13.9 % (11.5-14.5); WHITE BLOOD COUNT 7.6 X10'3 (4.5-11.0)
[2023-07-17 13:08] LABS: BILIRUBIN,URINE NEGATIVE (Neg); CLARITY,URINE CLOUDY (Clear); COLOR,URINE YELLOW (Yellow); GLUCOSE, URINE NEGATIVE (Neg); KETONES,URINE 15 mg/dl (Neg); LEUKOCYTE ESTERASE ,URINE NEGATIVE (Neg); NITRITES, URINE NEGATIVE (Neg); OCCULT BLOOD,URINE NEGATIVE (Neg); PROTEIN,URINE NEGATIVE (Neg); UROBILINOGEN,URINE 0.2 E.U/dL (0.2-1.0)
[2023-07-17 13:22] LABS: UA COLLECTION TYPE NON-SPECIFIED
[2023-07-17 13:26] LABS: ALANINE AMINOTRANSFERASE 30 U/L (12-78); ALBUMIN 3.5 G/DL (3.4-5.0); ALBUMIN/GLOBULIN RATIO 0.9 (1.1-1.5); ALKALINE PHOSPHATASE 77 IU/L (46-116); ANION GAP 8 (8-16); ASPARTATE AMINO TRANSFERASE 23 U/L (10-37); BILIRUBIN,TOTAL 0.5 MG/DL (0.1-1.0); BLOOD UREA NITROGEN 14 MG/DL (7-18); BUN/CREATININE RATIO 22.6 (10.0-20.0); CALCIUM 8.8 MG/DL (8.5-10.1); CHLORIDE 103 MMOL/L (99-107); CREATININE 0.62 MG/DL (0.60-1.10); GLUCOSE 88 MG/DL (70-104); POTASSIUM 3.1 MMOL/L (3.5-5.1); SODIUM 141 MMOL/L (135-145); TOTAL CARBON DIOXIDE 29.7 MMOL/L (24-32); TOTAL PROTEIN 7.2 G/DL (6.4-8.2); eCRCL 155 ML/MIN; eGFR > 90 ML/MIN
[2023-07-17 13:27] LABS: MUCUS STRANDS MODERATE /LPF (Neg); SQUAMOUS EPITHELIAL CELL,UR FEW /LPF (FEW)
[2023-07-17 13:28] LABS: COARSE GRANULAR CAST 0-3 /LPF (NEGATIVE); HYALINE CASTS 0-3 /LPF (NEGATIVE); SPERM FEW /HPF (NEGATIVE)
[2023-07-17 13:29] LABS: AMORPHOUS PHOSPHATES 2+; BACTERIA,URINE FEW /HPF (Neg)
[2023-07-17 13:36] LABS: THYROID STIMULATING HORMONE 1.44 ulU/ml (0.34-4.50)
[2023-07-17 13:38] LABS: ETHANOL < 10 MG/DL (<10)
[2023-07-17] MEDS ORDERED: HYDR-3686 PO (20:23)
[2023-07-17] MEDS ORDERED: AMIL5TAB8 PO (20:23)
[2023-07-17] MEDS ORDERED: SERT-434 PO (20:23)
[2023-07-17] MEDS ORDERED: AMLO10TA13 PO (20:23)
[2023-07-17] MEDS ORDERED: LOSA100T58 PO (20:23)
[2023-07-17] MEDS ORDERED: potassium Cl 20 mEq SR tablet PO STA (22:06)
[2023-07-18] MEDS ORDERED: ibuprofen tablet 400 MG TABLET PO ONE (04:20)
[2023-07-18 06:03] VITALS: BP 129/95; PULSE 85; TEMP 97.6; O2SAT 100
[2023-07-18 08:30] VITALS: RESP 16
== END 2023-07-18 16:00 | disposition home or self-care (01) ==
LOC: ER 10:05
DX: R44.0 Auditory hallucinations (principal); Z20.822 Contact with and (suspected) exposure to COVID-19; I10 Essential (primary) hypertension; Z88.6 Allergy status to analgesic agent; Z79.899 Other long term (current) drug therapy
CPT/HCPCS: 36415; 80053; 80305; 80320; 81001; 84443; 85025; 87811; 99284

== ENCOUNTER 2023-07-22 06:10 | Emergency (ER) | payer MEDICARE, MEDICAID ==
[~2023-07-22] VITALS: Ht 177.8 cm; Wt 83.1 kg
[~2023-07-22 06:10] MED LIST changes: -AMLO10TA PO; +AMLO10TA13 PO; -CHLO473M2 MM; -CLE150C PO; -LOSA-418 PO; +LOSA100T58 PO; -METO50TA17 PO; -OLAN15TA35 PO; +SERT-434 PO; -SERT150C PO
[2023-07-22 06:34] VITALS: BP 141/77; PULSE 79; RESP 18; TEMP 98.1; O2SAT 98
[2023-07-22 10:35] LABS: URINE AMPHETAMINE SCREEN NEGATIVE (Neg); URINE BARBITUATE SCREEN NEGATIVE (Neg); URINE BENZODIAZEPINES SCREEN NEGATIVE (Neg); URINE CANNABINOID SCREEN POSITIVE (Neg); URINE COCAINE SCREEN NEGATIVE (Neg); URINE METHADONE SCREEN NEGATIVE (Neg); URINE OPIATE SCREEN NEGATIVE (Neg); URINE PHENCYCLIDINE SCREEN NEGATIVE (Neg)
== END 2023-07-22 10:56 | disposition left against medical advice (07) ==
LOC: ER 06:12
DX: R45.851 Suicidal ideations (principal); Z20.822 Contact with and (suspected) exposure to COVID-19; Z53.21 Procedure and treatment not carried out due to patient leaving prior to being seen by health care provider
CPT/HCPCS: 36415; 80305; 87811; 99281

== ENCOUNTER 2023-08-10 07:40 | Emergency (ER) | payer MEDICARE, MEDICAID | END 2023-08-10 08:14 | disposition left against medical advice (07) | LOC: ER 07:40 | DX: L02.91 Cutaneous abscess, unspecified (principal); Z53.21 Procedure and treatment not carried out due to patient leaving prior to being seen by health care provider ==

== ENCOUNTER 2023-08-12 13:21 | Emergency (ER) | payer MEDICARE, MEDICAID ==
[~2023-08-12] VITALS: Ht 177.8 cm; Wt 80.9 kg
[2023-08-12 13:45] VITALS: PULSE 87; RESP 17; TEMP 97.9; O2SAT 100
== END 2023-08-12 14:23 | disposition home or self-care (01) ==
LOC: ER 13:22
DX: F60.9 Personality disorder, unspecified (principal); F32.A Depression, unspecified; L02.414 Cutaneous abscess of left upper limb; I10 Essential (primary) hypertension; Z72.89 Other problems related to lifestyle; Z79.1 Long term (current) use of non-steroidal anti-inflammatories (NSAID); Z79.899 Other long term (current) drug therapy
CPT/HCPCS: 99282; 99283; A6258; A6407; A6449

== ENCOUNTER 2023-08-16 18:41 | Emergency (ER) | payer MEDICARE, MEDICAID ==
[~2023-08-16] VITALS: Ht 177.8 cm; Wt 80.9 kg
[2023-08-16 19:46] LABS: BASOPHILS # (AUTO) 0.1 X10'3 (0-0.2); BASOPHILS % (AUTO) 0.8 % (0-1); EOSINOPHILS # (AUTO) 0.1 X10'3 (0-0.9); EOSINOPHILS % (AUTO) 0.9 % (0-6); HEMATOCRIT 38.7 % (42.0-52.0); HEMOGLOBIN 13.4 g/dl (14.0-17.9); LYMPHOCYTES # (AUTO) 1.5 X10'3 (1.1-4.8); LYMPHOCYTES % (AUTO) 18.1 % (21-51); MEAN CORPUSCULAR HGB CONC 34.7 g/dL (33.0-36.5); MEAN PLATELET VOLUME 8.7 FL (7.4-10.4); MONOCYTES # (AUTO) 0.7 X10'3 (0-0.9); NEUTROPHILS # (AUTO) 5.9 X10'3 (1.8-7.7); NEUTROPHILS % (AUTO) 72.2 % (42-75); PLATELET COUNT 355 X10'3 (140-440); RED BLOOD COUNT 4.08 X10'6 (4.70-6.10); RED CELL DISTRIBUTION WIDTH 14.1 % (11.5-14.5); WHITE BLOOD COUNT 8.2 X10'3 (4.5-11.0)
[2023-08-16 19:49] LABS: ALBUMIN 3.5 G/DL (3.4-5.0); CALCIUM 9.4 MG/DL (8.5-10.1); CHLORIDE 105 MMOL/L (99-107); CREATININE 1.08 MG/DL (0.60-1.10); ETHANOL < 10 MG/DL (<10); GLUCOSE 108 MG/DL (70-104); POTASSIUM 3.6 MMOL/L (3.5-5.1); SODIUM 145 MMOL/L (135-145); eCRCL 89 ML/MIN; eGFR 74 ML/MIN
[2023-08-17 01:08] LABS: BILIRUBIN,URINE NEGATIVE (Neg); CLARITY,URINE CLEAR (Clear); COLOR,URINE STRAW (Yellow); GLUCOSE, URINE 100 mg/dl (Neg); KETONES,URINE NEGATIVE (Neg); LEUKOCYTE ESTERASE ,URINE NEGATIVE (Neg); NITRITES, URINE NEGATIVE (Neg); OCCULT BLOOD,URINE NEGATIVE (Neg); PROTEIN,URINE NEGATIVE (Neg); UROBILINOGEN,URINE 0.2 E.U/dL (0.2-1.0)
[2023-08-17 01:11] LABS: UA COLLECTION TYPE VOIDED
[2023-08-17 01:28] LABS: URINE AMPHETAMINE SCREEN NEGATIVE (Neg); URINE BARBITUATE SCREEN NEGATIVE (Neg); URINE BENZODIAZEPINES SCREEN NEGATIVE (Neg); URINE CANNABINOID SCREEN NEGATIVE (Neg); URINE COCAINE SCREEN NEGATIVE (Neg); URINE METHADONE SCREEN NEGATIVE (Neg); URINE OPIATE SCREEN NEGATIVE (Neg); URINE PHENCYCLIDINE SCREEN NEGATIVE (Neg)
[2023-08-17] MEDS ORDERED: CEPH-585 PO (02:34)
[2023-08-17] MEDS ORDERED: POTA20PA40 PO (02:34)
[2023-08-17] MEDS ORDERED: POTA10CA85 PO (03:17)
[2023-08-17 05:52] VITALS: BP_DIAS 84; TEMP 97.7; O2SAT 97
[2023-08-17 08:00] VITALS: RESP 18
[2023-08-17] MEDS ORDERED: non-formulary drug (Losartan Potassium 1 TAB) PO SCH (08:00)
[2023-08-17] MEDS ORDERED: AMILORIDE 5MG TABLET PO SCH (08:00)
[2023-08-17] MEDS ORDERED: POTASSIUM CHLORIDE PO SCH (08:00)
[2023-08-17] MEDS ORDERED: non-formulary drug (Amlodipine Besylate 1 TAB) PO SCH (08:00)
[2023-08-17] MEDS ORDERED: non-formulary drug (Sertraline HCl 1 TAB) PO SCH (08:00)
[2023-08-17] MEDS ORDERED: hydrOXYzine 25 MG tablet PO SCH (08:00)
[2023-08-17] MEDS: hydrOXYzine 25 MG tablet PO SCH (08:31)
[2023-08-17] MEDS: losartan 50mg tablet PO SCH (08:32)
[2023-08-17] MEDS: sertraline 50mg tablet PO SCH (08:32)
[2023-08-17] MEDS: spironolactone 25 MG tablet PO SCH (08:32)
[2023-08-17 08:33] VITALS: BP_SYST 134; PULSE 76
[2023-08-17] MEDS: potassium chloride 10mEq ER tablet PO SCH (08:33)
[2023-08-17] MEDS: amLODIPine 5mg tablet PO SCH (08:33)
[2023-08-17] MEDS: cephalexin 500mg capsule PO SCH (08:33)
[2023-08-17] MEDS: LORazepam 0.5 MG tablet PO PRN (10:27)
[2023-08-17 16:52] LABS: ANION GAP 14 (8-16); BLOOD UREA NITROGEN 20 MG/DL (7-18); TOTAL CARBON DIOXIDE 26.3 MMOL/L (24-32)
[2023-08-17 16:53] LABS: BUN/CREATININE RATIO 18.5 (10.0-20.0)
== END 2023-08-17 10:53 | disposition home or self-care (01) ==
LOC: ER 18:43
DX: R45.851 Suicidal ideations (principal); Z20.822 Contact with and (suspected) exposure to COVID-19; I10 Essential (primary) hypertension; F32.A Depression, unspecified; Z88.6 Allergy status to analgesic agent; Z79.899 Other long term (current) drug therapy
CPT/HCPCS: 36415; 80048; 80305; 80320; 81003; 85025; 87811; 99285; Q0177

== ENCOUNTER 2023-08-28 20:04 | Emergency (ER) | payer MEDICARE, MEDICAID ==
[~2023-08-28] VITALS: Ht 177.8 cm; Wt 81.1 kg
[~2023-08-28 20:04] MED LIST changes: +CEPH-585 PO; +POTA10CA85 PO
[2023-08-28] MEDS ORDERED: ketorolac tromethamine 15mg/ml inj. IM ONE (23:10)
[2023-08-28] MEDS ORDERED: PRED20TA PO (23:52)
[2023-08-28] MEDS ORDERED: LIDO700A32 TOP (23:52)
[2023-08-28] MEDS ORDERED: CYCL-1 PO (23:52)
[2023-08-28] MEDS ORDERED: ALBU8HFA INH (23:52)
[2023-08-29] MEDS: cyclobenzaprine 10mg tablet PO ONE (00:05)
[2023-08-29] MEDS: acetaminophen 325mg tablet PO STA (00:48)
[2023-08-29] MEDS: dexamethasone sod phosphate 10mg/ml inj IM STA (00:49)
[2023-08-29 01:34] VITALS: TEMP 97.7
[2023-08-29] MEDS: cloNIDine 0.1 mg tablet PO ONE (01:36)
[2023-08-29 02:14] VITALS: BP 134/96; PULSE 84; RESP 16; O2SAT 99
== END 2023-08-29 02:15 | disposition home or self-care (01) ==
LOC: ER 20:05
DX: S39.012A Strain of muscle, fascia and tendon of lower back, initial encounter (principal); Z20.822 Contact with and (suspected) exposure to COVID-19; J06.9 Acute upper respiratory infection, unspecified; I10 Essential (primary) hypertension; Z88.6 Allergy status to analgesic agent; Z79.899 Other long term (current) drug therapy; X58.XXXA Exposure to other specified factors, initial encounter; Y93.89 Activity, other specified; Y92.89 Other specified places as the place of occurrence of the external cause; Y99.8 Other external cause status
CPT/HCPCS: 36415; 71045; 72100; 87811; 96372; 99284; J1100

== ENCOUNTER 2023-10-01 17:49 | Emergency (ER) | payer MEDICARE, MEDICAID ==
[~2023-10-01] VITALS: Ht 177.8 cm; Wt 80.9 kg
[~2023-10-01 17:49] MED LIST changes: +CYCL-1 PO; +LIDO700A32 TOP
[2023-10-01 17:50] VITALS: BP 180/112; PULSE 87; RESP 16; TEMP 98.2; O2SAT 100
== END 2023-10-01 19:18 | disposition left against medical advice (07) ==
LOC: ER 17:50
DX: M25.562 Pain in left knee (principal); Z53.21 Procedure and treatment not carried out due to patient leaving prior to being seen by health care provider
CPT/HCPCS: 99281

== ENCOUNTER 2025-03-03 04:06 | Emergency (ER) | payer MEDICAID, MEDICARE ==
[~2025-03-03] VITALS: Ht 180.3 cm; Wt 54.1 kg
[~2025-03-03 04:06] MED LIST changes: +LIDO-52 TOP; -LIDO700A32 TOP; -POTA10CA85 PO; +POTA10CA95 PO
[2025-03-03] MEDS: HYDROcodone/acetaminophen 5mg/325mg tablet PO ONE (05:20)
--- NOTE | 2025-03-03 05:50 | Physician Documentation ---
History of Present Illness ~ Chief Complaint: Back Pain Stated Complaint: LOWER BACK PAIN/KIDNEY PAIN Time Seen by MD: 04:58 Primary Medical Doctor: Georgette Whitney Low back pain across back. Denies injury, fevers, intravenous drug use, bowel or bladder incontinence. Medication Reconciliation Allergies: Coded Allergies: No Known Allergies (Unverified , 03/03/25) Scheduled Amiloride HCl (Amiloride HCl), 2 TAB PO DAILY, (Reported) Amlodipine Besylate (Amlodipine Besylate), 1 TAB PO DAILY, (Reported) Cephalexin*Monohydrate* (Keflex*), 1 CAP PO QID, (Reported) Cyclobenzaprine* (Cyclobenzaprine*), 1 TAB PO HS Hydroxyzine Hcl* (Atarax*), 1 TAB PO BID, (Reported) Lidocaine (Lidoderm), 1 PATCH TOP DAILY Losartan Potassium (Losartan Potassium), 1 TAB PO DAILY, (Reported) Potassium Chloride* (Potassium Chloride*), 4 CAP PO DAILY, (Reported) Sertraline HCl (Sertraline HCl), 1 TAB PO DAILY, (Reported) Past Medical History Past Medical History: Headache, Hypertension, Patty's Disease, *PSYCH*, Depression Past Surgical History: no surgical history Smoking Status: Current every day smoker Alcohol Use: Occasionally Drug Use: none Lives with: Alone, Other Lives In: Home, Other Review of Systems All Other Systems at this time: Reviewed and Negative Physical Exam Physical Exam Vital Signs: RN Vital Signs have been reviewed: Yes, Heart Rate: 82, Respiratory Rate: 16, BP: 103/71, Pulse Oximetry: 98, Weight: 54.150 Oxygen Flow Rate: 0 Physical Exam HEENT: PERRL, moist oral mucosa, EOMI Pulmonary: No respiratory distress MSK: no deformity Skin: w/d/i, no rash Neuro: alert, nonfocal Psych: normal affect Progress Results/Orders Results/Orders Completed Orders - YESSENIA BANDA MD Hydrocodone/Apap 5/325mg Tab ([place] 5/32 (03/03/25 05:05) Vital Signs 03/03/25 03/03/25 03/03/25 03/03/25 04:09 04:30 05:20 06:09 Temp 97.8 Pulse 90 82 76 Resp 14 18 16 16 B/P (MAP) 119/77 103/71 (82) 132/80 Pulse Ox 98 98 99 O2 Flow Rate 0 Medical Decision Making Findings 49 year old male with benign back pain. Pain medication, no red flags, improved, return precautions. Differential Dx:Considerations: Include: Fracture, Musculoskeletal pain, Urolithiasis, Urinary tract infection Differential Diagnosis Ddx includes radiculopathy, cauda equina syndrome, spinal abscess Departure Disposition: HOME / SELF CARE / HOMELESS Impression: Primary Impression: Low back pain Discharge Instructions: Acute Back Pain, Adult Referrals: NO PRIMARY CARE PROVIDER (PCP) Education Educated: Patient Educated regarding: diagnosis, treatment, prognosis, need for follow up Signature Scribe Signature: . Attestation: . YESSENIA BANDA MD Mar 03, 2025 05:50
[2025-03-03 06:09] VITALS: BP 132/80; PULSE 76; RESP 16; TEMP 97.8; O2SAT 99
== END 2025-03-03 06:11 | disposition home or self-care (01) ==
LOC: ER 04:07
DX: M54.50 Low back pain, unspecified (principal); I10 Essential (primary) hypertension; F32.A Depression, unspecified; F17.200 Nicotine dependence, unspecified, uncomplicated
CPT/HCPCS: 99283

== ENCOUNTER 2025-05-16 16:27 | Emergency (ER) | payer MEDICAID ==
[2025-05-16 16:58] VITALS: BP 187/118; PULSE 86; RESP 18; O2SAT 98
--- NOTE | 2025-05-16 17:39 | Physician Documentation ---
HPI ~ General Chief Complaint: Medication Refill Stated Complaint: MH Time Seen by MD: 17:00 Primary Medical Doctor: Rebecca whitlock History of Present Illness HPI Comments This is a 49-year-old male who presents requesting a medication refill of his previously prescribed buspirone, patient reports that the rebecca whitlock refilled his prescription for buspirone yesterday however the pharmacy would not fill it as is higher than the FDA approved dosage, patient reports that he presented to an urgent care today who agreed to represcribed the medication at a lower dosage however this prescription was apparently not sent. Patient reports that he has been on his medication for the past four days in his feeling quite anxious. She reports no other acute symptoms or concerns including no HI or SI. Medication Reconciliation Allergies: Coded Allergies: No Known Allergies (Unverified , 05/16/25) Scheduled Amiloride HCl (Amiloride HCl), 2 TAB PO DAILY, (Reported) Amlodipine Besylate (Amlodipine Besylate), 1 TAB PO DAILY, (Reported) Buspirone HCl (Buspirone HCl), 1 TAB PO Q12H Cephalexin*Monohydrate* (Keflex*), 1 CAP PO QID, (Reported) Cyclobenzaprine* (Cyclobenzaprine*), 1 TAB PO HS Hydroxyzine Hcl* (Atarax*), 1 TAB PO BID, (Reported) Lidocaine (Lidoderm), 1 PATCH TOP DAILY Losartan Potassium (Losartan Potassium), 1 TAB PO DAILY, (Reported) Potassium Chloride* (Potassium Chloride*), 4 CAP PO DAILY, (Reported) Sertraline HCl (Sertraline HCl), 1 TAB PO DAILY, (Reported) Past Medical History Past Medical History: Headache, Hypertension, [place]'s Disease, *PSYCH*, Depression Past Surgical History: no surgical history Alcohol Use: Occasionally Drug Use: none Lives with: Alone, Other Lives In: Home, Other Review of Systems ROS As stated above in the HPI, otherwise all systems are reviewed and negative. Physical Exam Physical Exam Vital Signs: Temperature: 97.6, Source: Oral, Heart Rate: 86, Respiratory Rate: 18, BP: 187/118, Pulse Oximetry: 98 Oxygen Flow Rate: 0 Physical Exam VITALS: Reviewed and as above. GENERAL: Alert, nontoxic appearing, no apparent distress. RESPIRATORY: No increased work of breathing, no respiratory distress, speaking in full clear sentences PSYCH: Mildly anxious appearing, no HI no SI verbalized. Progress Results/Orders Results/Orders Vital Signs 05/16/25 05/16/25 16:58 18:27 Temp 97.6 97.6 Pulse 86 Resp 18 B/P (MAP) 187/118 Pulse Ox 98 O2 Flow Rate 0 Medical Decision Making Additional information obtaine: old records Findings This 49-year-old male presented to the emergency department requesting a refill of his previously prescribed buspirone combination of insurance and pharmacy issues, given patient's long history of being on this medication with effective control of his anxiety and symptoms of anxiety now that he is off this medication, I will refill the prescription for a short amount of time to allow patient to clear up issues with his primary care provider and pharmacy. Patient is otherwise well-appearing and appropriate for outpatient follow up. Differential Dx:Considerations: Include: Adverse circumstances, Economic, Psychosocial, Medical services unavail., Medication refill, Medication non- compliance, Other (Mental disorder, psychosis, suicidal ideation, homicidal ideation, anxiety) Departure Time of Disposition: 17:38 Disposition: 01 HOME / SELF CARE / HOMELESS Impression: Primary Impression: Anxiety Condition: Improved Discharge Instructions: Medicine Refill at the Emergency Department Additional Instructions: I have refilled your prescription for one-week, please take the medication as prescribed. Please follow up with your primary care provider or the [facility] for continued management of this medication. Please follow up with your primary care provider in the next few days. Please return to the emergency department for any new or worsening concerning symptoms. Referrals: NO PRIMARY CARE PROVIDER (PCP) Prescriptions Buspirone HCl (Buspirone HCl) 30 Mg Tablet 1 TAB PO Q12H for 7 Days, #14 TAB 0 Refills Prov: LEONIDAS MEDLEY 05/16/25 Education Educated: Patient Educated regarding: diagnosis, treatment, prognosis, need for follow up Signature Scribe Signature: No scribe Attestation: The note accurately reflects work and decisions made by me.STACY Roman 05/17/25 02:10 LEONIDAS MEDLEY May 16, 2025 17:39
[2025-05-16] MEDS ORDERED: BUSP30TA2 PO (17:42)
[2025-05-16 18:27] VITALS: TEMP 97.6
== END 2025-05-16 18:32 | disposition home or self-care (01) ==
LOC: ER 16:28
DX: Z76.0 Encounter for issue of repeat prescription (principal); F41.9 Anxiety disorder, unspecified; F32.A Depression, unspecified; I10 Essential (primary) hypertension; Z79.899 Other long term (current) drug therapy; Z72.89 Other problems related to lifestyle; Z60.2 Problems related to living alone
CPT/HCPCS: 99282